=== PATIENT | male | born 1995 | race Caucasian/White ===

== ENCOUNTER 2018-05-17 12:19 | Inpatient (IN) | payer OTHER ==
[~2018-05-17] VITALS: Ht 170.2 cm; Wt 99.9 kg
[2018-05-17] MEDS ORDERED: MIRT15 PO (12:31)
[2018-05-17 13:35] LABS: BASOPHILS % (AUTO) 0.2 % (0.0-2.0); EOSINOPHILS % (AUTO) 1.5 % (1.0-6.0); HEMATOCRIT 47.1 % (41-53); HEMOGLOBIN 16.4 g/dL (13.5-17.5); LYMPHOCYTES # (AUTO) 2.8 K/uL (1.0-4.8); LYMPHOCYTES % (AUTO) 19.6 % (22.0-44.0); MEAN CORPUSCULAR HEMOGLOBIN 30.3 pg (26.0-34.0); MEAN CORPUSCULAR HGB CONC 34.8 G/dL (31.0-37.0); MEAN CORPUSCULAR VOLUME 87 fL (80-100); MONOCYTES # (AUTO) 1.1 K/uL (0.1-1.0); MONOCYTES % (AUTO) 7.7 % (2.0-9.0); PLATELET COUNT (AUTO) 346 K/uL (150-450); RED BLOOD CELL COUNT(AUTO) 5.41 MIL/uL (4.50-5.90); RED CELL DISTRIBUTION WIDTH 13.3 % (11.5-14.5)
[2018-05-17 13:47] LABS: ANION GAP 13 mmol/L (8-16); CALCIUM, TOTAL 8.8 mg/dL (8.8-10.5); CARBON DIOXIDE 25 mmol/L (22-29); CHLORIDE 104 mmol/L (98-107); CREATININE 0.72 mg/dL (0.60-1.30); GLOMERULAR FILTR. RATE CALC > 60 mL/min (>60); GLUCOSE,RANDOM 114 mg/dL (70-110); POTASSIUM 3.4 mmol/L (3.5-5.1); SODIUM SERUM 142 mmol/L (136-145); UREA NITROGEN, BLOOD 10 mg/dL (7-18)
[2018-05-17 13:52] LABS: ALANINE AMINOTRANSFERASE 74 U/L (12-78); ALBUMIN 4.1 g/dL (3.4-5.0); ALKALINE PHOSPHATASE 101 U/L (46-116); ASPARTATE AMINOTRANSFERASE 32 U/L (15-37); BILIRUBIN,TOTAL 0.1 mg/dL (0.1-1.0); TOTAL PROTEIN, SERUM 7.7 g/dL (6.4-8.2)
[2018-05-17 14:37] LABS: AMPHET/METH SCREEN,URINE NEGATIVE (NEGATIVE); BARBITURATE SCREEN, URINE NEGATIVE (NEGATIVE); BENZODIAZEPINES SCREEN,URINE NEGATIVE (NEGATIVE); CANNABINOID SCREEN,URINE NEGATIVE (NEGATIVE); COCAINE SCREEN,URINE NEGATIVE (NEGATIVE); METHADONE SCREEN, URINE NEGATIVE (NEGATIVE); OPIATE SCREEN,URINE NEGATIVE (NEGATIVE)
[2018-05-17 14:39] LABS: PHENCYCLIDINE SCREEN,URINE NEGATIVE (NEGATIVE)
[2018-05-17] MEDS ORDERED: LORazepam 2 MG TABLET PO PRN (17:00)
[2018-05-17] MEDS ORDERED: ZOLPIDEM TARTRATE 10 MG TABLET PO PRN (17:00)
[2018-05-17] MEDS ORDERED: HALOPERIDOL 5 MG TABLET PO PRN (17:00)
[2018-05-17 19:30] VITALS: BP 142/81
[2018-05-17] MEDS ORDERED: LOPERAMIDE HCL 2 MG CAPSULE PO PRN (21:15)
[2018-05-17] MEDS ORDERED: CloNIDine HCL 0.1 MG TABLET PO PRN (21:15)
[2018-05-17] MEDS ORDERED: ACETAMINOPHEN 325 MG TABLET PO PRN (21:15)
[2018-05-17] MEDS ORDERED: ALBUTEROL SULFATE HFA 90 MCG/PUFF 8 GM INHALER IH PRN (21:15)
[2018-05-17] MEDS ORDERED: DOCUSATE SODIUM 100 MG CAPSULE PO PRN (21:15)
[2018-05-17] MEDS ORDERED: MAGNESIUM HYDROXIDE SUSPENSION 30 ML UDCUP PO PRN (21:15)
[2018-05-17] MEDS ORDERED: MAG HYDROX/AL HYDROX/SIMETH ES 30 ML SUSPENSION UDCUP PO PRN (21:15)
[2018-05-17] MEDS ORDERED: ONDANSETRON HCL 4 MG TABLET PO PRN (21:15)
[2018-05-17] MEDS ORDERED: GuaiFENesin/D-METHORPHAN [SUGAR-FREE] 200-20MG/10 ML SYRUP UDCUP PO PRN (21:15)
[2018-05-17] MEDS ORDERED: IBUPROFEN 400 MG TABLET PO PRN (21:15)
[2018-05-17] MEDS ORDERED: PETROLATUM,WHITE 71 GM JELLY TP PRN (21:15)
[2018-05-18 07:22] LABS: HEMOGLOBIN A1C 5.5 % (4.5-6.2)
[2018-05-18 07:25] LABS: ALANINE AMINOTRANSFERASE 64 U/L (12-78); ALBUMIN 3.9 g/dL (3.4-5.0); ALKALINE PHOSPHATASE 100 U/L (46-116); ANION GAP 5 mmol/L (8-16); ASPARTATE AMINOTRANSFERASE 26 U/L (15-37); BILIRUBIN,TOTAL 0.6 mg/dL (0.1-1.0); CARBON DIOXIDE 34 mmol/L (22-29); CHLORIDE 102 mmol/L (98-107); CHOL/HDL RATIO 3.6 (4.2-7.3); CHOLESTEROL 185 mg/dL (131-200); CREATININE 0.82 mg/dL (0.60-1.30); GLOMERULAR FILTR. RATE CALC > 60 mL/min (>60); GLUCOSE,RANDOM 82 mg/dL (70-110); HDL CHOLESTEROL 52 mg/dL (40-60); LDL CHOL (CALC.) 111 mg/dL (0-130); SODIUM SERUM 141 mmol/L (136-145); TOTAL PROTEIN, SERUM 7.3 g/dL (6.4-8.2); TRIGLYCERIDES 111 mg/dL (15-150); UREA NITROGEN, BLOOD 11 mg/dL (7-18)
[2018-05-18 08:05] VITALS: BP 131/79
[2018-05-18 09:06] LABS: BASOPHILS % (AUTO) 0.8 % (0.0-2.0); EOSINOPHILS % (AUTO) 2.3 % (1.0-6.0); HEMATOCRIT 46.2 % (41-53); HEMOGLOBIN 15.9 g/dL (13.5-17.5); LYMPHOCYTES # (AUTO) 3.2 K/uL (1.0-4.8); LYMPHOCYTES % (AUTO) 22.5 % (22.0-44.0); MEAN CORPUSCULAR HEMOGLOBIN 30.4 pg (26.0-34.0); MEAN CORPUSCULAR HGB CONC 34.4 G/dL (31.0-37.0); MEAN CORPUSCULAR VOLUME 88 fL (80-100); MONOCYTES # (AUTO) 1.6 K/uL (0.1-1.0); MONOCYTES % (AUTO) 11.2 % (2.0-9.0); NEUTROPHILS % (AUTO) 63.2 % (40.0-70.0); PLATELET COUNT (AUTO) 332 K/uL (150-450); RED BLOOD CELL COUNT(AUTO) 5.22 MIL/uL (4.50-5.90); RED CELL DISTRIBUTION WIDTH 13.4 % (11.5-14.5)
[2018-05-18] MEDS: BACITRACIN 28.4 GM OINTMENT TP SCH ×2 (09:22→17:07)
[2018-05-18] MEDS: SERTRALINE HCL 50 MG TABLET PO SCH (14:50)
[2018-05-18 17:00] VITALS: BP 133/84
[2018-05-19] MEDS: NICOTINE 14 MG/24 HOUR PATCH TD PRN ×2 (00:50→19:10)
[2018-05-19 02:00] VITALS: BP 128/88
[2018-05-19 08:02] VITALS: BP 139/83
[2018-05-19] MEDS: BuPROPion HCL 100 MG SR TABLET PO SCH (09:22)
[2018-05-19] MEDS: SERTRALINE HCL 50 MG TABLET PO SCH (09:22)
[2018-05-19] MEDS: BACITRACIN 28.4 GM OINTMENT TP SCH ×2 (09:23→16:53)
[2018-05-19 18:48] VITALS: BP 128/76
[2018-05-20 08:03] VITALS: BP 138/79
[2018-05-20] MEDS: SERTRALINE HCL 50 MG TABLET PO SCH (08:58)
[2018-05-20] MEDS: BuPROPion HCL 100 MG SR TABLET PO SCH (08:58)
[2018-05-20] MEDS: BACITRACIN 28.4 GM OINTMENT TP SCH (09:21)
[2018-05-20] MEDS ORDERED: BUPR100SR PO (14:32)
[2018-05-20] MEDS ORDERED: SERT50TA12 PO (14:32)
== END 2018-05-20 15:45 | disposition home or self-care (01) | DRG 885 ==
LOC: EMS 12:23 → 3EI 18:37
PROVIDERS: ADMIT Psychiatry & Neurology Child & Adolescent Psychiatry; ATTEND Psychiatry & Neurology Child & Adolescent Psychiatry
DX: F33.2 Major depressive disorder, recurrent severe without psychotic features (principal); R45.851 Suicidal ideations; D72.829 Elevated white blood cell count, unspecified; F10.10 Alcohol abuse, uncomplicated; Z71.41 Alcohol abuse counseling and surveillance of alcoholic; F41.9 Anxiety disorder, unspecified; I10 Essential (primary) hypertension; S60.819A Abrasion of unspecified wrist, initial encounter; Z79.899 Other long term (current) drug therapy; S60.812A Abrasion of left wrist, initial encounter; S60.811A Abrasion of right wrist, initial encounter; X58.XXXA Exposure to other specified factors, initial encounter; Y93.89 Activity, other specified; Y92.89 Other specified places as the place of occurrence of the external cause; Y99.8 Other external cause status
CPT/HCPCS: 83036; 84443; G0480